=== PATIENT | female | born 1935 ===

== ENCOUNTER 2020-03-09 10:45 | Inpatient (IN) | payer OTHER ==
[~2020-03-09] VITALS: Ht 149.9 cm; Wt 40.4 kg
[2020-03-09] MEDS ORDERED: GLIMEPIRIDE2 M1 PO (14:34)
[2020-03-09] MEDS ORDERED: CANDESARTAN CILE8 MG PO (14:34)
[2020-03-09] MEDS ORDERED: SYNTHROID50 MCG PO (14:34)
[2020-03-16] MEDS ORDERED: PANTOPRAZOLE SO40 MG (11:22)
== END 2020-03-19 15:47 | disposition home or self-care (01) | DRG 331 ==
LOC: SURH 03-16 06:13 → O/R 03-16 06:13 → SURH 03-16 09:45
PROVIDERS: ADMIT Colon & Rectal Surgery; ATTEND Colon & Rectal Surgery
PROC: 07BC4ZX Excision of Pelvis Lymphatic, Percutaneous Endoscopic Approach, Diagnostic (ICD-10-PCS; 2020-03-16)
PROC: 0DBF4ZZ Excision of Right Large Intestine, Percutaneous Endoscopic Approach (ICD-10-PCS; principal; 2020-03-16 09:45)
DX: C18.2 Malignant neoplasm of ascending colon (principal); E03.9 Hypothyroidism, unspecified; I13.10 Hypertensive heart and chronic kidney disease without heart failure, with stage 1 through stage 4 chronic kidney disease, or unspecified chronic kidney disease; N18.3 Chronic kidney disease, stage 3 (moderate)